=== PATIENT | male | born 1990 | race Caucasian/White ===

== ENCOUNTER 2022-07-20 12:24 | Observation (INO) ==
[2022-07-20] MEDS ORDERED: ZOFRAN 4 MG/2 ML IVP STA (12:50)
[2022-07-20] MEDS ORDERED: SODIUM CHLORIDE 1,000 ML IV STA ×3 (12:50→15:21)
--- NOTE | 2022-07-20 12:50 | ED.PDOC ---
General ED Provider: Dr. VIOLETTE ADDISON MD Chief Complaint: Abdominal Pain Stated Complaint: Patient presents with a one day history of epigastric pain, nausea, emesis and watery diarrhea. He denies fever, chills, melena, hematemesis, hematochezia or urinary tract symptoms. Patient is diabetic and obese. He had the dose of his Mounjaro increased last week. Time Seen by Provider: 07/20/22 12:50 Nursing and Triage Documentation Reviewed and Agree: Yes Does patient meet sepsis criteria?: No System Inflammatory Response Syndrome: Not Applicable Sepsis Protocol: For patient's 13 years and over: Temp is 96.8 and below OR 101 and greater Pulse >90 BPM Resp >20/minute Acutely Altered Mental Status Are patient's symptoms suggestive of a new infection, such as: -Pneumonia -Skin, Soft Tissue -Endocarditis -UTI -Bone, Joint Infection -Implantable Device -Acute Abdominal Infection -Wound Infection -Meningitis -Blood Stream Catheter Infection -Unknown Review of Systems Review Of Systems Constitutional: Reports No symptoms Eyes: Reports No symptoms Ears, Nose, Mouth, Throat: Reports No symptoms Respiratory: Reports No symptoms Cardiac: Reports No symptoms GI: Reports Abdominal pain, Diarrhea, Nausea, Poor appetite, Poor fluid intake and Vomiting : Reports No symptoms Musculoskeletal: Reports No symptoms Skin: Reports No symptoms Neurological: Reports No symptoms Endocrine: Reports No symptoms Hematologic/Lymphatic: Reports No symptoms All Other Systems: Reviewed and Negative Physical Exam Physical Exam Appearance: Reports Ill-appearing and Obese Ill-appearing: Moderate Pain Distress: Mild Eyes: Reports Conjunctiva clear ENT: Reports Nose normal, Oropharynx normal and Dry mucosa Neck: Supple Respiratory: Reports Airway patent, Breath sounds clear and Breath sounds equal Cardiovascular: Reports No rub, No murmur and Tachycardia GI/: Reports Soft, Nontender, No masses, Bowel sounds normal and No Organomegaly Musculoskeletal: Reports Normal strength and No edema Skin: Reports Warm, Dry and Normal color Neurological: Reports Alert and Oriented Psychiatric: Reports Affect appropriate and Mood appropriate Critical Care Note Critical Care Note Total Critical Care Time (mins): 0 Course Course 07/20/22 13:00 07/20/22 15:32 Orders, Labs, Meds: Lab Review 07/20/22 07/20/22 07/20/22 13:00 13:05 15:32 WBC 14.46 H RBC 7.00 H Hgb 19.6 H Hct 56.9 H MCV 81.3 MCH 28.0 MCHC 34.4 RDW Coeff of [place] 15.2 H Plt Count 356 Immature Gran % (Auto) 0.3 Neut % (Auto) 70.2 Lymph % (Auto) 18.4 [place] % (Auto) 6.0 Eos % (Auto) 4.8 Baso % (Auto) 0.3 Neut # (Auto) 10.1 H Lymph # (Auto) 2.7 [place] # (Auto) 0.9 Eos # (Auto) 0.7 Baso # (Auto) 0.1 Immature Gran # (Auto) 0.0 Sodium 140.8 142.1 Potassium 4.05 4.35 Chloride 109.1 H 108.9 H Carbon Dioxide 16.1 L 24.1 D Anion Gap 19.65 13.45 BUN 13.8 14.9 Creatinine 1.21 H 1.19 H Estimated GFR (MDRD) 69.00 70.00 BUN/Creatinine Ratio 11.40 12.52 Glucose 163.3 H 118.1 H Calcium 9.89 8.92 Total Bilirubin 1.01 0.74 AST 73.9 H 63.7 H ALT 104.9 H 94.6 H Alkaline Phosphatase 73.5 57.0 Total Protein 8.92 H 7.72 Albumin 5.12 H 4.41 Globulin 3.80 3.31 Albumin/Globulin Ratio 1.34 1.33 Lipase 5473.5 H Orders Category Date Time Status Saline Lock [ED IV/MEDIPORT/POWERPORT] .ONCE EMERGENCY 07/20/22 12:50 Active CBC W/ AUTO DIFF Stat LAB 07/20/22 13:00 Completed CMP [COMPREHENSIVE METABOLIC PANEL] Stat LAB 07/20/22 13:05 Completed CMP [COMPREHENSIVE METABOLIC PANEL] Stat LAB 07/20/22 15:32 Completed LIPASE Stat LAB 07/20/22 13:05 Completed 0.9 % Sodium Chloride [Saline Flush] MEDS 07/20/22 12:50 Active 1 syr IVF PRN PRN Hydromorphone HCl [Dilaudid 0.5 mg/0.5 ml Syringe] MEDS 07/20/22 13:55 Discon tinued 1 mg IVP ONCE STA Hydromorphone HCl [Dilaudid 0.5 mg/0.5 ml Syringe] MEDS 07/20/22 15:21 Discontinued 1 mg IVP ONCE STA Ketorolac Tromethamine [Toradol] MEDS 07/20/22 12:56 Discontinued 30 mg IVP ONCE STA Labetalol HCl [Trandate] MEDS 07/20/22 13:56 Discontinued 10 mg IVP ONCE STA Labetalol HCl [Trandate] MEDS 07/20/22 15:22 Discontinued 20 mg IVP ONCE STA Labetalol HCl [Trandate] MEDS 07/20/22 15:22 Discontinued 200 mg PO ONCE STA Ondansetron HCl/Pf [Zofran 4 mg/2 ml] MEDS 07/20/22 12:50 Discontinued 8 mg IVP ONCE STA Prochlorperazine Edisylate [Compazine] MEDS 07/20/22 15:21 Discontinued 10 mg IVP ONCE STA Sodium Chloride 0.9% [Sodium Chloride] 1,000 ml MEDS 07/20/22 12:50 Discontinued IV BOLUS Sodium Chloride 0.9% [Sodium Chloride] 1,000 ml MEDS 07/20/22 13:55 Discontinued IV BOLUS Sodium Chloride 0.9% [Sodium Chloride] 1,000 ml MEDS 07/20/22 15:21 Discontinued IV BOLUS Medications Generic Name Dose Route Start Last Admin Trade Name Freq PRN Reason Stop Dose Admin Sodium Chloride 1 syr 07/20/22 12:50 0.9% Sodium Chloride 10 Ml Disp.Syrin IVF PRN PRN To flush IV Discontinued Medications Generic Name Dose Route Start Last Admin Trade Name Freq PRN Reason Stop Dose Admin Hydromorphone HCl 1 mg 07/20/22 13:55 07/20/22 14:04 Hydromorphone 0.5 Mg/0.5 Ml Syringe IVP 07/20/22 13:56 1 mg ONCE STA Administration Hydromorphone HCl 1 mg 07/20/22 15:21 07/20/22 15:29 Hydromorphone 0.5 Mg/0.5 Ml Syringe IVP 07/20/22 15:22 1 mg ONCE STA Administration Sodium Chloride 1,000 mls @ 1,000 mls/hr 07/20/22 12:50 07/20/22 13:12 Sodium Chloride IV 07/20/22 13:49 1,000 mls/hr BOLUS STA Administration Sodium Chloride 1,000 mls @ 1,000 mls/hr 07/20/22 13:55 Sodium Chloride IV 07/20/22 14:54 BOLUS STA Sodium Chloride 1,000 mls @ 1,000 mls/hr 07/20/22 15:21 07/20/22 15:28 Sodium Chloride IV 07/20/22 16:20 1,000 mls/hr BOLUS STA Administration Ketorolac Tromethamine 30 mg 07/20/22 12:56 07/20/22 13:11 Ketorolac Tromethamine 30 Mg/Ml Vial IVP 07/20/22 12:57 30 mg ONCE STA Administration Labetalol HCl 10 mg 07/20/22 13:56 07/20/22 14:01 Labetalol Hcl 20 Mg/4 Ml Disp.Syrin IVP 07/20/22 13:57 20 mg ONCE STA Administration Labetalol HCl 200 mg 07/20/22 15:22 Labetalol Hcl 100 Mg Tablet PO 07/20/22 15:23 ONCE STA Labetalol HCl 20 mg 07/20/22 15:22 07/20/22 15:28 Labetalol Hcl 20 Mg/4 Ml Disp.Syrin IVP 07/20/22 15:23 20 mg ONCE STA Administration Ondansetron HCl 8 mg 07/20/22 12:50 07/20/22 13:11 Ondansetron Hcl/Pf 4 Mg/2 Ml Sdv IVP 07/20/22 12:51 8 mg ONCE STA Administration Prochlorperazine Edisylate 10 mg 07/20/22 15:21 07/20/22 15:27 Prochlorperazine Edisylate 10 Mg/2 Ml Sdv IVP 07/20/22 15:22 10 mg ONCE STA Administration Vital Signs: Temp Pulse Resp BP Pulse Ox 07/20/22 15:56 79 18 133/96 H 93 L 07/20/22 13:42 85 19 168/118 H 99 07/20/22 12:34 98 F 105 H 20 160/105 H 98 Discharge Plan Discharge Patient Disposition: PLACED OBSERVATION Discharge Problem: Elevated BP without diagnosis of hypertension, Acute pancreatitis, Diabetes Prescriptions: No Action Mounjaro 5 mg/0.5 mL pen injector 5 mg subcut WEEKLY omeprazole 40 mg capsule,delayed release(DR/EC) 40 mg PO BID Did you review [place] [employer] for ALL controlled substances?: No ED Provider: VIOLETTE ADDISON Condition: Serious Physician Progress Note: []
[2022-07-20] MEDS ORDERED: TORADOL IVP STA (12:56)
[2022-07-20 13:09] LABS: BASOPHILS # (AUTO) 0.1 K/uL (0-0.2); BASOPHILS % (AUTO) 0.3 % (0.0-3.0); EOSINOPHILS # (AUTO) 0.7 K/ul (0.0-0.7); EOSINOPHILS % (AUTO) 4.8 % (0.0-7.0); HEMATOCRIT 56.9 % (42.0-52.0); HEMOGLOBIN 19.6 g/dl (14.0-18.0); IMMATURE GRANULOCYTE % (AUTO) 0.3 % (0.0-5.0); LYMPHOCYTES # (AUTO) 2.7 K/uL (0.60-3.4); LYMPHOCYTES % (AUTO) 18.4 (10.0-50.0); MEAN CORPUSCULAR HGB CONC 34.4 (31.8-35.4); MEAN CORPUSCULAR VOLUME 81.3 fl (80.0-94.0); MONOCYTES # (AUTO) 0.9 K/uL (0.4-2.0); NEUTROPHILS # (AUTO) 10.1 K/ul (2.0-6.9); NEUTROPHILS % (AUTO) 70.2 % (42.2-75.2); PLATELET COUNT 356 10^3/uL (140-440); RDW COEFFICIENT OF VARIATION 15.2 % (11.6-14.8); WHITE BLOOD COUNT 14.46 K/ul (4.2-10.2)
[2022-07-20 13:22] LABS: ALANINE AMINOTRANSFERASE 104.9 U/L (0-50); ALBUMIN 5.12 g/dL (3.5-5.0); ALKALINE PHOSPHATASE 73.5 U/L (38-126); ASPARTATE AMINO TRANSFERASE 73.9 U/L (17-59); BILIRUBIN,TOTAL 1.01 mg/dL (0.2-1.3); BLOOD UREA NITROGEN 13.8 mg/dL (9-20); CALCIUM 9.89 mg/dL (8.4-10.2); CARBON DIOXIDE 16.1 mmol/L (22-30.0); CHLORIDE 109.1 mmol/L (98-107); CREATININE 1.21 mg/dL (0.60-1.10); GLUCOSE 163.3 mg/dL (74-106); POTASSIUM 4.05 mmol/L (3.5-5.1); SODIUM 140.8 mmol/L (134.5-145); TOTAL PROTEIN 8.92 g/dL (6.3-8.2)
[2022-07-20 13:39] LABS: LIPASE 5473.5 U/L (23-300)
[2022-07-20] MEDS ORDERED: DILAUDID 0.5 MG/0.5 ML SYRINGE IVP STA ×2 (13:55→15:21)
[2022-07-20] MEDS ORDERED: TRANDATE IVP STA ×2 (13:56→15:22)
[2022-07-20] MEDS ORDERED: COMPAZINE IVP STA (15:21)
[2022-07-20] MEDS ORDERED: TRANDATE PO STA (15:22)
[2022-07-20 15:48] LABS: ALANINE AMINOTRANSFERASE 94.6 U/L (0-50); ALBUMIN 4.41 g/dL (3.5-5.0); ASPARTATE AMINO TRANSFERASE 63.7 U/L (17-59); BILIRUBIN,TOTAL 0.74 mg/dL (0.2-1.3); BLOOD UREA NITROGEN 14.9 mg/dL (9-20); CALCIUM 8.92 mg/dL (8.4-10.2); CARBON DIOXIDE 24.1 mmol/L (22-30.0); CHLORIDE 108.9 mmol/L (98-107); CREATININE 1.19 mg/dL (0.60-1.10); GLUCOSE 118.1 mg/dL (74-106); POTASSIUM 4.35 mmol/L (3.5-5.1); SODIUM 142.1 mmol/L (134.5-145); TOTAL PROTEIN 7.72 g/dL (6.3-8.2)
--- NOTE | 2022-07-20 17:03 | PCM ---
Chief Complaint Chief Complaint: abdominal pain, nausea, vomiting and diarrhea History of Present Illness History of Present Illness: Patient presents with epigastric abdominal pain, nausea, vomiting and diarrhea for one day. Denies fever, chills, melena, hematemesis, hematochezia. Patient had the dose of his maunjaro increased last week. Laboratory studies proved markedly elevated lipase and acute dehydration with acute renal injury. Patient has also exhibited poorly controlled hypertension. Review of Systems Constitutional: Reports No symptoms Eyes: Reports No symptoms Ears: Reports No symptoms Nose: Reports No symptoms Throat: Reports No symptoms Mouth: Reports No symptoms Respiratory: Reports No symptoms Cardiovascular: Reports No symptoms Gastrointestinal: Reports Abdominal pain, Nausea, Vomiting and Diarrhea Genitourinary: Reports No symptoms Neurological: Reports No symptoms Musculoskeletal: Reports No symptoms Skin: Reports No symptoms Immunology: Reports No symptoms Hematology: Reports No symptoms Endocrine: Reports No symptoms Psychiatric: Reports No symptoms Habits: Denies Tobacco use, Substance use, Alcohol use or Other Allergies Allergies Allergy/AdvReac Type Severity Reaction Status Date / Time No Known Allergies Allergy Unverified 07/20/22 13:01 Medications Medications: Medications Generic Name Dose Route Start Last Admin Trade Name Freq PRN Reason Stop Dose Admin Sodium Chloride 1 syr 07/20/22 12:50 0.9% Sodium Chloride 10 Ml Disp.Syrin IVF PRN PRN To flush IV Body Composition Height: 5 ft 9 in Weight: 129.274 kg Body Mass Index (BMI): 42.0 Vital Signs Temperature: 98 F Pulse Rate: 79 Respiratory Rate: 18 Blood Pressure: 133/96 O2 Sat by Pulse Oximetry: 93 Physical Examination Appearance: Reports Ill-appearing and Obese Ill-appearing: Moderate Pain Distress: Moderate Eyes: Reports Conjunctiva clear ENT: Reports Nose normal, Oropharynx normal and Dry mucosa Neck: Supple Respiratory: Reports Airway patent, Breath sounds clear and Breath sounds equal Cardiovascular: Reports RRR, No rub and No murmur GI/: Reports Soft, No masses, Bowel sounds normal, No Organomegaly and Tender (Moderate epigastric tenderness without guarding.) Musculoskeletal: Reports Normal strength and No edema Skin: Reports Warm, Dry and Normal color Neurological: Reports Cranial nerves intact and Alert Psychiatric: Reports Affect appropriate and Mood appropriate Lab/Tests/Diagnostic Imaging Lab/Tests/Diagnostic Imaging: Lab Review 07/20/22 07/20/22 07/20/22 13:00 13:05 15:32 WBC 14.46 H RBC 7.00 H Hgb 19.6 H Hct 56.9 H MCV 81.3 MCH 28.0 MCHC 34.4 RDW Coeff of [place] 15.2 H Plt Count 356 Immature Gran % (Auto) 0.3 Neut % (Auto) 70.2 Lymph % (Auto) 18.4 [place] % (Auto) 6.0 Eos % (Auto) 4.8 Baso % (Auto) 0.3 Neut # (Auto) 10.1 H Lymph # (Auto) 2.7 [place] # (Auto) 0.9 Eos # (Auto) 0.7 Baso # (Auto) 0.1 Immature Gran # (Auto) 0.0 Sodium 140.8 142.1 Potassium 4.05 4.35 Chloride 109.1 H 108.9 H Carbon Dioxide 16.1 L 24.1 D Anion Gap 19.65 13.45 BUN 13.8 14.9 Creatinine 1.21 H 1.19 H Estimated GFR (MDRD) 69.00 70.00 BUN/Creatinine Ratio 11.40 12.52 Glucose 163.3 H 118.1 H Calcium 9.89 8.92 Total Bilirubin 1.01 0.74 AST 73.9 H 63.7 H ALT 104.9 H 94.6 H Alkaline Phosphatase 73.5 57.0 Total Protein 8.92 H 7.72 Albumin 5.12 H 4.41 Globulin 3.80 3.31 Albumin/Globulin Ratio 1.34 1.33 Lipase 5473.5 H Orders Category Date Time Status Saline Lock [ED IV/MEDIPORT/POWERPORT] .ONCE EMERGENCY 07/20/22 12:50 Active CBC W/ AUTO DIFF Stat LAB 07/20/22 13:00 Completed CMP [COMPREHENSIVE METABOLIC PANEL] Stat LAB 07/20/22 13:05 Completed CMP [COMPREHENSIVE METABOLIC PANEL] Stat LAB 07/20/22 15:32 Completed LIPASE Stat LAB 07/20/22 13:05 Completed 0.9 % Sodium Chloride [Saline Flush] MEDS 07/20/22 12:50 Active 1 syr IVF PRN PRN Hydromorphone HCl [Dilaudid 0.5 mg/0.5 ml Syringe] MEDS 07/20/22 13:55 Discontinued 1 mg IVP ONCE STA Hydromorphone HCl [Dilaudid 0.5 mg/0.5 ml Syringe] MEDS 07/20/22 15:21 Discontinued 1 mg IVP ONCE STA Ketorolac Tromethamine [Toradol] MEDS 07/20/22 12:56 Discontinued 30 mg IVP ONCE STA Labetalol HCl [Trandate] MEDS 07/20/22 13:56 Discontinued 10 mg IVP ONCE STA Labetalol HCl [Trandate] MEDS 07/20/22 15:22 Discontinued 20 mg IVP ONCE STA Labetalol HCl [Trandate] MEDS 07/20/22 15:22 Discontinued 200 mg PO ONCE STA Ondansetron HCl/Pf [Zofran 4 mg/2 ml] MEDS 07/20/22 12:50 Discontinued 8 mg IVP ONCE STA Prochlorperazine Edisylate [Compazine] MEDS 07/20/22 15:21 Discontinued 10 mg IVP ONCE STA Sodium Chloride 0.9% [Sodium Chloride] 1,000 ml MEDS 07/20/22 12:50 Discontinued IV BOLUS Sodium Chloride 0.9% [Sodium Chloride] 1,000 ml MEDS 07/20/22 13:55 Discontinued IV BOLUS Sodium Chloride 0.9% [Sodium Chloride] 1,000 ml MEDS 07/20/22 15:21 Discontinued IV BOLUS Medications Generic Name Dose Route Start Last Admin Trade Name Freq PRN Reason Stop Dose Admin Sodium Chloride 1 syr 07/20/22 12:50 0.9% Sodium Chloride 10 Ml Disp.Syrin IVF PRN PRN To flush IV Discontinued Medications Generic Name Dose Route Start Last Admin Trade Name Freq PRN Reason Stop Dose Admin Hydromorphone HCl 1 mg 07/20/22 13:55 07/20/22 14:04 Hydromorphone 0.5 Mg/0.5 Ml Syringe IVP 07/20/22 13:56 1 mg ONCE STA Administration Hydromorphone HCl 1 mg 07/20/22 15:21 07/20/22 15:29 Hydromorphone 0.5 Mg/0.5 Ml Syringe IVP 07/20/22 15:22 1 mg ONCE STA Administration Sodium Chloride 1,000 mls @ 1,000 mls/hr 07/20/22 12:50 07/20/22 13:12 Sodium Chloride IV 07/20/22 13:49 1,000 mls/hr BOLUS STA Administration Sodium Chloride 1,000 mls @ 1,000 mls/hr 07/20/22 13:55 Sodium Chloride IV 07/20/22 14:54 BOLUS STA Sodium Chloride 1,000 mls @ 1,000 mls/hr 07/20/22 15:21 07/20/22 15:28 Sodium Chloride IV 07/20/22 16:20 1,000 mls/hr BOLUS STA Administration Ketorolac Tromethamine 30 mg 07/20/22 12:56 07/20/22 13:11 Ketorolac Tromethamine 30 Mg/Ml Vial IVP 07/20/22 12:57 30 mg ONCE STA Administration Labetalol HCl 10 mg 07/20/22 13:56 07/20/22 14:01 Labetalol Hcl 20 Mg/4 Ml Disp.Syrin IVP 07/20/22 13:57 20 mg ONCE STA Administration Labetalol HCl 200 mg 07/20/22 15:22 Labetalol Hcl 100 Mg Tablet PO 07/20/22 15:23 ONCE STA Labetalol HCl 20 mg 07/20/22 15:22 07/20/22 15:28 Labetalol Hcl 20 Mg/4 Ml Disp.Syrin IVP 07/20/22 15:23 20 mg ONCE STA Administration Ondansetron HCl 8 mg 07/20/22 12:50 07/20/22 13:11 Ondansetron Hcl/Pf 4 Mg/2 Ml Sdv IVP 07/20/22 12:51 8 mg ONCE STA Administration Prochlorperazine Edisylate 10 mg 07/20/22 15:21 07/20/22 15:27 Prochlorperazine Edisylate 10 Mg/2 Ml Sdv IVP 07/20/22 15:22 10 mg ONCE STA Administration Assessment (1) Acute pancreatitis: Status: Acute Code(s): K85.90 - Acute pancreatitis without necrosis or infection, unspecified SNOMED Code(s): 743557982 Assessment: Suspect acute pancreatitis is due to maunjaro. (2) Elevated BP without diagnosis of hypertension: Status: Acute Code(s): R03.0 - Elevated blood-pressure reading, without diagnosis of hypertension SNOMED Code(s): 074517829 (3) Diabetes: Status: Acute Code(s): E11.9 - Type 2 diabetes mellitus without complications SNOMED Code(s): 38332838 (4) Acute dehydration: Status: Acute Code(s): E86.0 - Dehydration SNOMED Code(s): 60832492 (5) Acute kidney injury: Status: Acute Code(s): N17.9 - Acute kidney failure, unspecified SNOMED Code(s): 82152270 Plan Plan: Will rehydrate patient and follow electrolytes and BUN/Cr. Keep NPO. Treat BP as necessary. Accu checks Q6h.
[2022-07-20] MEDS ORDERED: ZOFRAN 4 MG/2 ML IVP PRN (17:06)
[2022-07-20] MEDS ORDERED: TRANDATE IVP PRN (17:16)
[2022-07-20 17:47] LABS: SARS COV-2 RNA RAPID NAAT NEGATIVE (NEGATIVE)
[2022-07-20] MEDS: SODIUM CHLORIDE 1,000 ML IV SCH (18:12)
[2022-07-20 18:15] VITALS: BMI 41.5
[2022-07-20] MEDS: DILAUDID 0.5 MG/0.5 ML SYRINGE IVP PRN ×2 (18:29→21:24)
[2022-07-20] MEDS ORDERED: HUMULIN R SUBCUT PRN (18:49)
[2022-07-21] MEDS: SODIUM CHLORIDE 1,000 ML IV SCH ×2 (00:23→06:42)
[2022-07-21] MEDS: DILAUDID 0.5 MG/0.5 ML SYRINGE IVP PRN ×2 (01:22→04:30)
[2022-07-21 04:59] LABS: BASOPHILS % (AUTO) 0.2 % (0.0-3.0); EOSINOPHILS # (AUTO) 0.1 K/ul (0.0-0.7); EOSINOPHILS % (AUTO) 0.5 % (0.0-7.0); HEMATOCRIT 53.6 % (42.0-52.0); HEMOGLOBIN 17.5 g/dl (14.0-18.0); IMMATURE GRANULOCYTE # (AUTO) 0.1 (0.0-1.0); IMMATURE GRANULOCYTE % (AUTO) 0.4 % (0.0-5.0); LYMPHOCYTES # (AUTO) 1.5 K/uL (0.60-3.4); MEAN CORPUSCULAR HEMOGLOBIN 27.9 pg (27.0-31.0); MEAN CORPUSCULAR HGB CONC 32.6 (31.8-35.4); MEAN CORPUSCULAR VOLUME 85.5 fl (80.0-94.0); MONOCYTES # (AUTO) 1.2 K/uL (0.4-2.0); MONOCYTES % (AUTO) 6.2 (0-10); NEUTROPHILS # (AUTO) 15.9 K/ul (2.0-6.9); NEUTROPHILS % (AUTO) 84.7 % (42.2-75.2); PLATELET COUNT 289 10^3/uL (140-440); RDW COEFFICIENT OF VARIATION 14.8 % (11.6-14.8); RED BLOOD COUNT 6.27 10^6/ul (4.70-6.10); WHITE BLOOD COUNT 18.75 K/ul (4.2-10.2)
[2022-07-21 05:14] LABS: ALANINE AMINOTRANSFERASE 71.8 U/L (0-50); ALBUMIN 4.31 g/dL (3.5-5.0); ALKALINE PHOSPHATASE 54.3 U/L (38-126); ASPARTATE AMINO TRANSFERASE 36.9 U/L (17-59); BILIRUBIN,TOTAL 0.89 mg/dL (0.2-1.3); BLOOD UREA NITROGEN 11.7 mg/dL (9-20); CALCIUM 8.53 mg/dL (8.4-10.2); CREATININE 0.93 mg/dL (0.60-1.10); GLUCOSE 163.1 mg/dL (74-106); POTASSIUM 4.3 mmol/L (3.5-5.1); SODIUM 139.5 mmol/L (134.5-145); TOTAL PROTEIN 7.44 g/dL (6.3-8.2)
[2022-07-21] MEDS ORDERED: SODIUM CHLORIDE 1,000 ML IV SCH (07:13)
--- NOTE | 2022-07-21 07:17 | PCM.PROG ---
Date Seen by Provider: 07/21/22 Time Seen by Provider: 07:14 Subjective: im feeling better--notes abd pain is much better--no nursing staff concerns---he is urinating and pain is controlled---following bp and fsbs Objective: Vitals: T=98.1 F, P=96, R=18, QF=579/97, SPO2=96 HEENT: [] Neck: [supple] Lungs: [clear] CVS: [rrr] Abdomen: [soft obese bs prsent--nondistended abdomen] Extremities: [] Neurological: [intact] Skin: [] Lab/Tests/Diagnostic Imaging: [noted improved renal function and lipase] (1) Acute pancreatitis: Status: Acute Code(s): K85.90 - Acute pancreatitis without necrosis or infection, unspecified SNOMED Code(s): 651615073 (2) Elevated BP without diagnosis of hypertension: Status: Acute Code(s): R03.0 - Elevated blood-pressure reading, without diagnosis of hypertension SNOMED Code(s): 141807982 (3) Diabetes: Status: Acute Code(s): E11.9 - Type 2 diabetes mellitus without complications SNOMED Code(s): 83141226 (4) Acute dehydration: Status: Acute Code(s): E86.0 - Dehydration SNOMED Code(s): 21791429 (5) Acute kidney injury: Status: Acute Code(s): N17.9 - Acute kidney failure, unspecified SNOMED Code(s): 09829881 Plan: monitoring fsbs and bp--will check ct scan to alberto escobedo, hold gerardo--continue pain control
[2022-07-21] MEDS: DILAUDID 1 MG/ML SYRINGE IVP PRN ×2 (08:00→11:07)
[2022-07-21] MEDS ORDERED: LEXAPRO PO SCH (09:00)
[2022-07-21] MEDS ORDERED: WELLBUTRIN XL PO SCH (09:00)
--- NOTE | 2022-07-21 09:37 | DI ---
EXAM: CHEST TWO VIEW, FRONTAL AND LATERAL VIEWS. HISTORY: Abdominal pain. COMPARISON: None. FINDINGS: Heart size normal. Band-like opacities are seen in the left greater than right lung base. No pleural effusion or pneumothorax. No acute osseous abnormality. No free air under the diaphrag m. IMPRESSION: Left greater than right basilar subsegmental atelectasis versus pneumonia.
--- NOTE | 2022-07-21 09:47 | CT ---
EXAM: CT ABDOMEN PELVIS WITHOUT INTRAVENOUS CONTRAST 07/21/2022. SAGITTAL AND CORONAL REFORMATTED I MAGES OBTAINED HISTORY: Pancreatitis COMPARISON: None. FINDINGS: Bibasilar consolidation may represent atelectasis and/or pneumonia. Diffuse hepatic steat osis. Sludge and/or small stones within the gallbladder. The adrenal glands and kidneys show no acu te abnormality. There is no hydronephrosis. The spleen shows no acute process. Extensive peripancreatic edema and fluid most compatible with acute pancreatitis. Partially limited characterization due to lack of intravenous contrast. There is no organized fluid collection at this time. No bowel obstruction. Normal appendix. Unremarkable urinary bladder. IMPRESSION: 1. Bibasilar consolidation may represent atelectasis and/or pneumonia. 2. Extensive peripancreatic edema and free fluid. This is most compatible acute pancreatitis. No o rganized fluid collection at this time. 3. Sludge and/or small stones within the gallbladder. 4. Diffuse hepatic steatosis. All CT scans are performed using dose optimization techniques as appropriate to the performed exam an d include at least one of the following: Automated exposure control, adjustment of the mA and/or kV according t o size, and the use of iterative reconstruction technique.
[2022-07-21 10:17] VITALS: TEMP 97.8
--- NOTE | 2022-07-21 11:04 | PCM.DC ---
i spent 20m arranging discharge and transfer of this patient Final Diagnosis: gallstone pancreatitis, dm type 2, htn Physical Exam Appearance: Well-appearing Ill-appearing: None Pain Distress: Moderate Eyes: KULDIP, EOMI and Conjunctiva clear ENT: Ears normal, Nose normal and Oropharynx normal Neck: Supple Respiratory: Airway patent, Breath sounds clear and Breath sounds equal Cardiovascular: RRR, Pulses normal and No rub GI/: Soft, Nontender, No masses and Bowel sounds normal Musculoskeletal: Normal strength, ROM intact and No edema Skin: Warm, Dry and Normal color Neurological: Sensation intact, Motor intact, Reflexes intact, Cranial nerves intact, Alert and Oriented Psychiatric: Affect appropriate and Mood appropriate (1) Acute pancreatitis: Status: Acute Code(s): K85.90 - Acute pancreatitis without necrosis or infection, unspecified SNOMED Code(s): 804041125 (2) Elevated BP without diagnosis of hypertension: Status: Acute Code(s): R03.0 - Elevated blood-pressure reading, without diagnosis of hypertension SNOMED Code(s): 453128371 (3) Diabetes: Status: Acute Code(s): E11.9 - Type 2 diabetes mellitus without complications SNOMED Code(s): 71314665 (4) Acute dehydration: Status: Acute Code(s): E86.0 - Dehydration SNOMED Code(s): 53251748 (5) Acute kidney injury: Status: Acute Code(s): N17.9 - Acute kidney failure, unspecified SNOMED Code(s): 53533941 Reason for Hospitalization: abdominal pain, vomiting Prognosis/Condition at Discharge: good Medications at Discharge: see nursing note Lab/Diagnostics: improved lipase Follow-ups: prn Discharge Disposition: Transfer Hospital Course: Mr Barroso was admitted to obs by dr aguilera---ct scan did confirm small gallstones--i spoke to dr spain who very graciously accepted in transfer to [facility] Plan: keep npo, transfer to [facility] for surgical consultation
[2022-07-21 12:20] VITALS: BP 146/82
== END 2022-07-21 13:20 | disposition short-term general hospital (02) ==
LOC: ED 12:24 → MEDSURG A 17:11 → INTOOBSV 17:11 → MEDSURG A 18:13
PROVIDERS: ADMIT Surgery; ATTEND Family Medicine
DX: E11.9 Type 2 diabetes mellitus without complications; Z79.84 Long term (current) use of oral hypoglycemic drugs; R74.8 Abnormal levels of other serum enzymes; Z68.41 Body mass index [BMI] 40.0-44.9, adult; Z79.899 Other long term (current) drug therapy; K85.90 Acute pancreatitis without necrosis or infection, unspecified; R03.0 Elevated blood-pressure reading, without diagnosis of hypertension; E86.0 Dehydration; E66.9 Obesity, unspecified; Z51.81 Encounter for therapeutic drug level monitoring; N17.9 Acute kidney failure, unspecified